=== PATIENT | male | born 2000 | race African-American/Black ===

== ENCOUNTER 2020-10-03 08:09 | Emergency (ER) | payer OTHER ==
[~2020-10-03] VITALS: Ht 185.4 cm; Wt 79.5 kg
[2020-10-03 08:12] VITALS: BP 116/63
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
[2020-10-03] MEDS ORDERED: ACETAMINOPHEN 325 MG TABLET PO ONE (08:45)
--- NOTE | 2020-10-03 08:57 | RAD ---
CT scan of the head without contrast 10/03/2020 Clinical History: Chronic headache. Technique: Unenhanced, contiguous, 5 mm axial sections were obtained through the head. One or more of the following individualized dose reduction techniques were utilized for this study: 1. Automated exposure control. 2. Adjustment of the mA and/or kV according to patient size. 3. Use of iterative reconstruction technique. Findings: No previous studies are available for comparison. The patient is post right medial frontal craniotomy. The ventricles and sulci are within normal limit s in size and configuration. No acute parenchymal abnormality is seen. No extra-axial fluid collectio n is noted. No skull fracture is seen. Impression: No acute intracranial abnormality is seen. Electronically signed by: Errol Hassan MD (10/03/2020 8:55 AM) [id number]
== END 2020-10-03 09:08 | disposition home or self-care (01) ==
LOC: ER 08:09
DX: R51.9 Headache, unspecified (principal); G89.29 Other chronic pain
CPT/HCPCS: 70450; 99284-25